=== PATIENT | female | born 2000 | race Caucasian/White ===

== ENCOUNTER 2020-08-25 14:54 | Emergency (ER) | payer OTHER ==
[2020-08-25] MEDS ORDERED: SODIUM CHLORIDE 0.9% (FLUSH) 10 ML SYG IV PRN (15:18)
--- NOTE | 2020-08-25 15:18 | ED.PDOC ---
History of Present Illness - General Chief Complaint: General Stated Complaint: knots in groin Time Seen by Provider: 08/25/20 15:17 Source: patient - History of Present Illness Initial Comments: 19-year-old female who presents with chief complaint of painful knots in the groin region. Reports onset about 1 week ago with gradual worsening. Reports she has 2 small knots on either side of the groin, each about the size of a quarter. She reports they have been gradually increasing in size over the past week. She does report moderate constant sharp pain to each area without radiation, worse with palpation. No medications taken for relief. Denies any history of similar symptoms in the past. She additionally reports new onset of a faint erythematous rash to her abdomen and back which began today. Denies any other acute symptoms. Denies fevers, chills, urinary symptoms, abdominal pain, vaginal discharge, unexpected weight loss, leg pain, sore throat, cough, etc. Pt has Nexplanon for control, last period was >1 year ago. She does report that she is sexually active. Denies any history of STDs, denies vaginal pain or discharge or rashes. Patient admits that she has a "drug problem". 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 She also admits to smoking marijuana occasionally and drinking alcohol. Denies any other illicit substance abuse. Denies any history of IV drug abuse. Her family is trying to help her to stay clean but she was staying with some friends last week and had several days of Xanax usage. She admits she cannot recall exactly what she did during that week, unsure if she was sexually active. Allergies/Adverse Reactions: Allergies NO KNOWN ALLERGY Allergy (Verified 08/25/20 15:11) Home Medications: Ambulatory Orders NK 08/25/20 Review of Systems - Review of Systems Review of Systems: 08/25/20 15:52 as per HPI All other Systems: Reviewed and Negative Past Medical History (General) - Patient Medical History Hx Stroke: No Hx Congestive Heart Failure: No Hx Diabetes: No - Vaccination History Hx Influenza Vaccination: No - Social History Hx Tobacco Use: No - Female History Patient is a Female of Child Bearing Age (10 -59 yrs old): Yes - has an implant Family Medical History - Family History Mother Family History: Unknown Living Status: Unknown Physical Exam - Physical Exam General Appearance: Alert, Comfortable, No apparent distress Eye Exam: bilateral normal Ears, Nose, Throat: hearing grossly normal, normal ENT inspection, normal pharynx Neck: non-tender, full range of motion, supple, normal inspection Respiratory: lungs clear, normal breath sounds, no respiratory distress, no accessory muscle use Cardiovascular/Chest: normal peripheral pulses, regular rate, rhythm, no edema, no gallop, no JVD, no murmur Peripheral Pulses: radial,right: 2+, radial,left: 2+ Gastrointestinal/Abdominal: non tender, soft, no organomegaly Back Exam: normal inspection, no CVA tenderness, no vertebral tenderness Extremity: normal range of motion, non-tender, no pedal edema, no calf tenderness, normal capillary refill, other - 2 faint nearly healed bruises to the Right anterior thigh 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 No other noted lymphadenopathy Progress - Progress Progress: 08/25/20 15:54 Bilateral inguinal lymphadenopathy -Ongoing for approximately 1 week now. Differential diagnosis includes: Benign reactive lymphadenopathy, sexually transmitted infections, neoplasm, lymphoma, syphilis, other -Patient is stable. Denies any history of STDs or vaginal discharge. -will perform pelvic and speculum exam - check GC/chlamydia and wet prep. -Obtain blood work, HIV screen, RPR 08/25/20 17:36 -Pelvic exam did reveal mild erythema of the cervix as well as moderate white cervical discharge. There was moderate cervical motion tenderness. There were no noted adnexal masses or adnexal tenderness. GC chlamydia swabs and wet prep was taken. -Wet prep revealed no evidence of trichomonas, yeast, clue cells, bacteria -Blood work was largely unremarkable. HIV, RPR, and GC chlamydia testing are send outs and will follow-up -Discussed all findings with patient as well as diagnosis of pelvic inflammatory disease and inguinal lymphadenopathy (which I suspect is secondary to the former). As patient is stable and blood work is reassuring, I suspect that she has a mild to moderate case of pelvic inflammatory disease and is a good candidate for outpatient treatment. For empiric therapy will give Rocephin 500 mg IM and azithromycin 1000 mg p.o. in the ED -Discharged home in good condition, return warnings discussed at length. Patient will need to follow-up closely with her PCP for repeat evaluation of the lymphadenopathy as well as repeat pelvic exam. Drug abuse cessation counseling given. Geovani Randhawa MD Billing #[id number] 08/25/20 15:18 Sodium Chloride 0.9% (Flush) [Saline Flush Syringe] 10 ml IV PRN PRN 08/25/20 15:25 HIV-1/2 AB W/REFLEX EIA Stat RPR Stat 08/25/20 16:05 GC CHLAMYDIA RNA,TMA Stat Laboratory Results - last 24 hr 08/25/20 08/25/20 08/25/20 15:25 15:25 15:30 WBC 9.6 RBC 4.19 L Hgb 12.5 Hct 36.6 MCV 87.4 MCH 29.8 MCHC 34.1 RDW 13.2 Plt Count 251 MPV 7.5 Absolute Neuts (auto) 6.30 Absolute Lymphs (auto) 2.00 Absolute Monos (auto) 1.20 H Absolute Eos (auto) 0.20 Absolute Basos (auto) 0.00 Neutrophils % 65.1 Lymphocytes % 20.7 Monocytes % 12.2 H Eosinophils % 1.7 Basophils % 0.3 Sodium Potassium Chloride Carbon Dioxide Anion Gap BUN Creatinine BUN/Creatinine Ratio Random Glucose Serum Osmolality Calcium Total Bilirubin Direct Bilirubin Indirect Bilirubin AST ALT Alkaline Phosphatase Serum Total Protein Albumin Serum HCG, Qual Negative Urine Color Urine Appearance Urine pH Ur Specific Cassel Urine Protein Urine Glucose (UA) Urine Ketones Urine Blood Urine Nitrite Urine Bilirubin Urine Urobilinogen Ur Leukocyte Esterase Urine RBC Urine WBC Ur Epithelial Cells Urine Bacteria Urine HCG, Qual Cancelled HIV 1&2 Antibody Rapid Cancelled 08/25/20 08/25/20 15:30 17:09 WBC RBC Hgb Hct MCV MCH MCHC RDW Plt Count MPV Absolute Neuts (auto) Absolute Lymphs (auto) Absolute Monos (auto) Absolute Eos (auto) Absolute Basos (auto) Neutrophils % Lymphocytes % Monocytes % Eosinophils % Basophils % Sodium 138 Potassium 3.2 L Chloride 100 L Carbon Dioxide 25 Anion Gap 16.2 BUN 10 Creatinine 0.57 L BUN/Creatinine Ratio 17.5 Random Glucose 94 Serum Osmolality 274.5 L Calcium 8.8 Total Bilirubin 0.8 Direct Bilirubin 0.1 Indirect Bilirubin 0.7 AST 13 ALT 10 Alkaline Phosphatase 35 L Serum Total Protein 7.9 Albumin 3.6 Serum HCG, Qual Urine Color Yellow Urine Appearance Sl cloudy Urine pH 6.5 Ur Specific Cassel 1.025 Urine Protein 30 Urine Glucose (UA) Negative Urine Ketones 40 H Urine Blood Large H Urine Nitrite Negative Urine Bilirubin Small H Urine Urobilinogen >= 8.0 H Ur Leukocyte Esterase Trace H Urine RBC 20-30 H Urine WBC 1-3 Ur Epithelial Cells 5-10 Urine Bacteria Rare Urine HCG, Qual HIV 1&2 Antibody Rapid Departure - Departure Clinical Impression: Pelvic inflammatory disease (PID), Inguinal lymphadenopathy Time of Disposition: 17:34 Disposition: Discharge to Home or Self Care Condition: Good Departure Forms: ED Discharge - Pt. Copy, Patient Portal Self Enrollment Instructions: Pelvic Inflammatory Disease (DC), Lymphadenitis (DC) Diet: resume usual diet Activity: increase activity as tolerated Referrals: COLUMBA DORANTES [Primary Care Provider] - 1-2 Weeks Home Medications: Ambulatory Orders NK 08/25/20 Additional Instructions: You may continue to take [id number] medications for pain and inflammation such as ibuprofen 600 mg every 6 hours as needed and Tylenol 650 mg every 6 hours as needed. Some of your lab results will take several days to result and we will call you with these results. You will need to follow-up with your primary care physician in the next 5 to 7 days for repeat evaluation or sooner as needed.
[2020-08-25] MEDS ORDERED: SODIUM CHLORIDE 0.9% 1000ML 1,000 ML IVS ONE (15:19)
[2020-08-25] MEDS ORDERED: KETOROLAC TROMETHAMINE INJ 30 MG/ML VIAL IV ONE (15:19)
[2020-08-25] MEDS ORDERED: AZITHROMYCIN 250 MG TAB PO ONE (16:52)
[2020-08-25] MEDS ORDERED: LIDOCAINE 1% 2 ML VIAL INJ ONE (17:07)
[2020-08-25 17:50] VITALS: BP 120/85; TEMP 96.2; O2SAT 95
== END 2020-08-25 17:50 | disposition home or self-care (01) ==
LOC: ER 14:54
DX: N73.9 Female pelvic inflammatory disease, unspecified (principal); R59.0 Localized enlarged lymph nodes
CPT/HCPCS: 36415; 80048; 80076; 81001; 84703; 85025; 86592; 86701; 87210; 87491; 87591; J0696; J1885; J7030; Q0144

== ENCOUNTER 2020-11-04 12:19 | Emergency (ER) | payer OTHER ==
[2020-11-04 12:36] VITALS: O2SAT 97
--- NOTE | 2020-11-04 13:05 | ED.PDOC ---
History of Present Illness - General Chief Complaint: General Stated Complaint: sore throat,PLATT,runny nose,body aches Time Seen by Provider: 11/04/20 12:25 Source: patient Exam Limitations: no limitations - History of Present Illness Timing/Duration: unsure, other - 2 days Severity: moderate Improving Factors: nothing Worsening Factors: nothing Associated Symptoms: cough, headaches, malaise Allergies/Adverse Reactions: Allergies NO KNOWN ALLERGY Allergy (Verified 08/25/20 15:11) Home Medications: Ambulatory Orders NK 08/25/20 Review of Systems - Review of Systems Constitutional: States: chills. Denies: fever EENTM: States: nose congestion, throat pain. Denies: blurred vision, tearing, ear discharge, nose pain, mouth pain Respiratory: States: cough. Denies: short of breath, stridor Cardiology: Denies: chest pain, syncope Gastrointestinal/Abdominal: Denies: abdominal pain, diarrhea, nausea, other Musculoskeletal: Denies: back pain, muscle pain, muscle stiffness Skin: Denies: see HPI, change in color, dryness, lesions Neurological: Denies: depressed, emotional problems, paresthesia, pre-existing deficit, seizure Endocrine: Denies: excessive sweating, flushing Hematologic/Lymphatic: Denies: anemia, easy bleeding Past Medical History (General) - Patient Medical History Hx Stroke: No Hx Congestive Heart Failure: No Hx Diabetes: No Surgical History: no surgical history - Vaccination History Hx Influenza Vaccination: No - Social History Hx Tobacco Use: No - Female History Patient is a Female of Child Bearing Age (10 -59 yrs old): Yes - has a Nexplanon implant Family Medical History - Family History Mother Family History: Unknown Living Status: Unknown Physical Exam - Physical Exam General Appearance: Alert Eye Exam: bilateral normal Ears, Nose, Throat: hearing grossly normal, normal ENT inspection, abnormal TM (R), pharyngeal erythema Neck: non-tender, full range of motion, supple, normal inspection Respiratory: chest non-tender, lungs clear, normal breath sounds, no respiratory distress, no accessory muscle use Cardiovascular/Chest: normal peripheral pulses, regular rate, rhythm, no edema, no gallop, no JVD Peripheral Pulses: radial,right: 2+, radial,left: 2+ Gastrointestinal/Abdominal: normal bowel sounds, non tender, soft, no organomegaly Rectal Exam: normal exam, normal rectal tone Back Exam: normal inspection, no CVA tenderness, no vertebral tenderness Extremity: non-tender, normal inspection 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 Copy, Patient Portal Self Enrollment Instructions: Strep Throat (DC) Referrals: COLUMBA DORANTES [Primary Care Provider] - 1-2 Weeks Home Medications: Ambulatory Orders NK 08/25/20
[2020-11-04] MEDS ORDERED: PENICILLIN BENZATHINE 1.2 MU 1.2 MU/2 ML SYG IM ONE (13:06)
[2020-11-04 13:46] VITALS: BP 117/76; TEMP 98.8
== END 2020-11-04 13:46 | disposition home or self-care (01) ==
LOC: ER 12:19
DX: J02.0 Streptococcal pharyngitis (principal); Z20.828 Contact with and (suspected) exposure to other viral communicable diseases
CPT/HCPCS: 87486; 87581; 87633; 87635; 87880; J0561